=== PATIENT | male | born 1945 | race Caucasian/White ===

== ENCOUNTER 2018-10-29 19:18 | Observation (INO) ==
[2018-10-29 19:38] LABS: Mean Corpuscular HGB Conc 34.1 g/dL (31.6-35.5); Mean Corpuscular Hemoglobin 33.6 pg (28.0-33.3); Mean Corpuscular Volume 98.7 fL (83.0-100.0); Mean Platelet Volume 9.1 fL (9.4-12.4); Platelet Count 222 K/mcL (140-400); Red Blood Count 4.46 M/mcL (4.19-5.50); Red Cell Distribution Width 12.8 % (11.5-14.5); White Blood Count 9.7 K/mcL (4.3-11.1)
[2018-10-29] MEDS ORDERED: *HR* LORazepam 2 MG/ML VIAL ONE (19:42)
[2018-10-29 19:45] LABS: Prothrombin Time 11.4 Seconds (9.4-12.1)
[2018-10-29] MEDS ORDERED: Gadolinium Contrast Agent (WT Based) IV PRN (19:46)
[2018-10-29] MEDS ORDERED: levETIRAcetam 1,000 MG in 0.9 % Sodium Chloride 100 ML IVPB STA (19:47)
[2018-10-29] MEDS ORDERED: *HR* LORazepam 2 MG/ML VIAL IVP STA (19:47)
[2018-10-29 19:48] LABS: Activated Partial Thrombo Time 37.8 Seconds (26.0-36.0)
[2018-10-29 19:50] LABS: BUN/Creatinine Ratio 23 (6-26); Blood Urea Nitrogen 16 mg/dL (8-23); Calcium 9.3 mg/dL (8.6-10.3); Carbon Dioxide 28 mEq/L (23-29); Chloride 98 mEq/L (98-107); Glucose 178 mg/dL (70-105); Osmolality,Calculated 284 (280-300); Sodium 134 mEq/L (136-145); eGFR For African Americans > 60 (> 60); eGFR For Non-African Americans > 60 (> 60)
[2018-10-29 19:51] LABS: Troponin I < 0.03 ng/mL (< 0.04)
[2018-10-29 20:57] LABS: Magnesium 2.2 mg/dL (1.6-2.6)
[2018-10-29 21:12] LABS: Thyroid Stimulating Hormone 1.962 mcIU/mL (0.340-5.600)
[2018-10-29 21:23] LABS: VBG HCO3 23 mEq/L (21-27); VBG PCO2 36 mmHg (41-51); VBG PH 7.41 pH Units (7.32-7.42); VBG PO2 214 mmHg (25-50)
[2018-10-30 00:02] LABS: Bilirubin,Urine Negative (Negative); Blood,Urine Negative (Negative); Clarity,Urine Cloudy (Clear); Color,Urine Yellow (Yellow); Glucose,Urine (UA) Normal (Normal); Ketones,Urine Negative (Negative); Leukocyte Esterase,Urine Negative (Negative); Nitrite,Urine Negative (Negative); Protein,Urine 30 mg/dL (Neg-Trace); Specific Gravity,Urine 1.024 (1.010-1.025); Urobilinogen,Urine Normal (Normal)
[2018-10-30 00:03] LABS: Bacteria,Urine None Seen per hpf (None-Few); Hyaline Casts,Urine Few per lpf (None-Few); Squamous Epithelial Cell,Urine Many per lpf (None-Few); WBC,Urine 0-3 per hpf (0-3)
[2018-10-30 00:12] LABS: Amphetamine Screen,Urine Negative ng/mL (Cutoff=1000); Barbiturate Screen,Urine Negative ng/mL (Cutoff=200); Benzodiazepines Screen,Urine Negative ng/mL (Cutoff=200); Cannabinoid Screen,Urine Negative ng/mL (Cutoff = 50); Cocaine Screen,Urine Negative ng/mL (Cutoff= 300); Opiate Screen,Urine Negative ng/mL (Cutoff=300); Phencyclidine Screen,Urine Negative ng/mL (Cutoff=25)
[2018-10-30 00:13] LABS: Amorphous Sediment,Urine Many (Few)
[2018-10-30] MEDS ORDERED: Loratadine 10 MG TABLET PO PRN (02:01)
[2018-10-30] MEDS ORDERED: Ondansetron 4 MG/2 ML VIAL IVP PRN (02:06)
[2018-10-30] MEDS ORDERED: Naloxone 0.4 MG/ML INJ IVP PRN (02:06)
[2018-10-30] MEDS ORDERED: Acetaminophen 325 MG TABLET PO PRN (02:06)
[2018-10-30] MEDS ORDERED: 0.9 % Sodium Chloride 1,000 ML IVC SCH (02:15)
[2018-10-30 04:01] LABS: Adenovirus Not Detected (Not Detect); Bordetella Pertussis Not Detected (Not Detect); Chlamydophila pneumoniae Not Detected (Not Detect); Coronavirus 229E Not Detected (Not Detect); Coronavirus HKU1 Not Detected (Not Detect); Coronavirus NL63 Not Detected (Not Detect); Coronavirus OC43 Not Detected (Not Detect); Human Metapneumovirus Not Detected (Not Detect); Human Rhinovirus/Enterovirus Not Detected (Not Detect); Influenza A Subtype 2009 H1 Not Detected (Not Detect); Influenza B Not Detected (Not Detect); Mycoplasma pneumoniae Not Detected (Not Detect); Parainfluenza Virus 1 Not Detected (Not Detect); Parainfluenza Virus 2 Not Detected (Not Detect); Parainfluenza Virus 3 Not Detected (Not Detect); Parainfluenza Virus 4 Not Detected (Not Detect); Respiratory Syncytial Virus Not Detected (Not Detect)
[2018-10-30 06:19] LABS: Hematocrit 42.7 % (37.5-50.1); Hemoglobin 14.4 g/dL (12.9-16.9); Mean Corpuscular HGB Conc 33.7 g/dL (31.6-35.5); Mean Corpuscular Hemoglobin 34.4 pg (28.0-33.3); Mean Corpuscular Volume 101.9 fL (83.0-100.0); Mean Platelet Volume 9.8 fL (9.4-12.4); Platelet Count 164 K/mcL (140-400); Red Blood Count 4.19 M/mcL (4.19-5.50); Red Cell Distribution Width 12.8 % (11.5-14.5); White Blood Count 7.4 K/mcL (4.3-11.1)
[2018-10-30 07:09] LABS: BUN/Creatinine Ratio 31 (6-26); Blood Urea Nitrogen 17 mg/dL (8-23); Calcium 8.9 mg/dL (8.6-10.3); Carbon Dioxide 22 mEq/L (23-29); Chloride 101 mEq/L (98-107); Chol/HDL Ratio 2.9 (0-4.9); Cholesterol 159 mg/dL (< 200); Glucose 105 mg/dL (70-105); HDL Cholesterol 55 mg/dL (40-59); LDL Cholesterol,Calculated 89 mg/dL (0-99); Osmolality,Calculated 282 (280-300); Sodium 135 mEq/L (136-145); Triglycerides 75 mg/dL (< 150); eGFR For African Americans > 60 (> 60); eGFR For Non-African Americans > 60 (> 60)
[2018-10-30] MEDS: Lisinopril-HCTZ 20-12.5mg TABLET PO SCH (08:14)
[2018-10-31 03:31] LABS: Hematocrit 40.7 % (37.5-50.1); Hemoglobin 14.1 g/dL (12.9-16.9); Mean Corpuscular HGB Conc 34.6 g/dL (31.6-35.5); Mean Corpuscular Hemoglobin 33.4 pg (28.0-33.3); Mean Corpuscular Volume 96.4 fL (83.0-100.0); Mean Platelet Volume 9.5 fL (9.4-12.4); Platelet Count 182 K/mcL (140-400); Red Blood Count 4.22 M/mcL (4.19-5.50); Red Cell Distribution Width 12.4 % (11.5-14.5); White Blood Count 6.4 K/mcL (4.3-11.1)
[2018-10-31 03:32] LABS: BUN/Creatinine Ratio 22 (6-26); Blood Urea Nitrogen 12 mg/dL (8-23); Calcium 8.8 mg/dL (8.6-10.3); Carbon Dioxide 27 mEq/L (23-29); Chloride 101 mEq/L (98-107); Glucose 106 mg/dL (70-105); Osmolality,Calculated 280 (280-300); Potassium 3.6 mEq/L (3.5-5.1); Sodium 135 mEq/L (136-145); eGFR For African Americans > 60 (> 60); eGFR For Non-African Americans > 60 (> 60)
[2018-10-31 08:10] VITALS: BP 163/88
[2018-10-31] MEDS ORDERED: levETIRAcetam 250 MG TABLET PO SCH (09:00)
[2018-10-31] MEDS: Lisinopril-HCTZ 20-12.5mg TABLET PO SCH (09:10)
== END 2018-10-31 13:26 | disposition home or self-care (01) ==
LOC: EMEROOARM 19:18 → 2NNU 19:18 → 3BNU 10-30 16:24
PROVIDERS: ADMIT Internal Medicine Nephrology; ATTEND Internal Medicine Nephrology

== ENCOUNTER 2020-11-08 11:07 | Inpatient (IN) ==
[~2020-11-08 11:07] MED LIST: Acetaminophen IV 1,000 MG/100 ML BAG IVPB ONE
[2020-11-08] MEDS ORDERED: Ringers Solution, Lactated 1,000 ML IVC SCH (11:45)
[2020-11-08] MEDS ORDERED: *HR* HYDROmorphone PF 0.5 MG/0.5 ML SYRINGE IVP PRN (12:05)
[2020-11-08] MEDS ORDERED: Ondansetron 4 MG/2 ML VIAL IVP PRN ×2 (12:05→18:03)
[2020-11-08] MEDS ORDERED: *HR* Propofol 200 MG/20 ML VIAL IVP ONE (12:27)
[2020-11-08] MEDS ORDERED: *HR* FentaNYL (PF) 100 MCG/2 ML VIAL ONE ×2 (12:37→14:53)
[2020-11-08] MEDS ORDERED: Lidocaine -MPF 2% 2 ML VIAL ONE (12:38)
[2020-11-08] MEDS ORDERED: Ampicillin/Sulbactam 3,000 MG in 0.9 % Sodium Chloride Mini Bag 100 ML IVPB ONE (13:08)
[2020-11-08] MEDS ORDERED: *HR* Rocuronium Bromide 50 MG/5 ML VIAL ONE ×3 (13:35→14:22)
[2020-11-08] MEDS ORDERED: *HR* Phenylephrine 10 MG/ML VIAL ONE (14:26)
[2020-11-08] MEDS ORDERED: Sugammadex Sodium 200 MG/2 ML VIAL IV ONE (15:19)
[2020-11-08] MEDS ORDERED: Naloxone 0.4 MG/ML INJ IVP PRN (18:03)
[2020-11-08] MEDS ORDERED: 0.9 % Sodium Chloride Mini Bag 100 ML ONE (19:36)
[2020-11-08] MEDS: 0.9 % Sodium Chloride 1,000 ML IVC SCH (19:41)
[2020-11-08] MEDS: Ampicillin/Sulbactam 3,000 MG in 0.9 % Sodium Chloride Mini Bag 100 ML IVPB SCH (19:42)
[2020-11-08] MEDS: levETIRAcetam 250 MG TABLET PO SCH (19:56)
[2020-11-08] MEDS: Sennosides/Docusate Sodium TABLET PO SCH (19:56)
[2020-11-08] MEDS: Gabapentin 300 MG CAPSULE PO SCH (19:56)
[2020-11-08] MEDS: Famotidine 20 MG TABLET PO SCH (19:56)
[2020-11-08] MEDS: *HR* Heparin 5,000 UNIT/ML VIAL SQ SCH (21:09)
[2020-11-08] MEDS: *HR* HYDROcodone/Acet 5/325 mg TABLET PO PRN (21:10)
[2020-11-09] MEDS: Ampicillin/Sulbactam 3,000 MG in 0.9 % Sodium Chloride Mini Bag 100 ML IVPB SCH ×2 (00:33→06:50)
[2020-11-09] MEDS: 0.9 % Sodium Chloride 1,000 ML IVC SCH (03:27)
[2020-11-09 05:14] LABS: Hematocrit 30.9 % (37.5-50.1); Hemoglobin 10.5 g/dL (12.9-16.9); Mean Corpuscular Volume 94.2 fL (83.0-100.0); Platelet Count 471 K/mcL (140-400); Red Blood Count 3.28 M/mcL (4.19-5.50); Red Cell Distribution Width 13.2 % (11.5-14.5); White Blood Count 19.1 K/mcL (4.3-11.1)
[2020-11-09 05:33] LABS: BUN/Creatinine Ratio 22 (6-26); Blood Urea Nitrogen 10 mg/dL (8-23); Calcium 8.3 mg/dL (8.6-10.3); Carbon Dioxide 30 mEq/L (23-29); Chloride 94 mEq/L (98-107); Glucose 153 mg/dL (70-105); Magnesium 1.9 mg/dL (1.6-2.6); Osmolality,Calculated 272 (280-300); Potassium 4.3 mEq/L (3.5-5.1); Sodium 130 mEq/L (136-145); eGFR For African Americans > 60 (> 60); eGFR For Non-African Americans > 60 (> 60)
[2020-11-09] MEDS: *HR* Heparin 5,000 UNIT/ML VIAL SQ SCH ×3 (06:53→22:33)
[2020-11-09] MEDS: *HR* HYDROcodone/Acet 5/325 mg TABLET PO PRN ×3 (06:57→19:50)
[2020-11-09] MEDS: Famotidine 20 MG TABLET PO SCH ×2 (09:06→19:51)
[2020-11-09] MEDS: levETIRAcetam 250 MG TABLET PO SCH ×2 (09:06→19:50)
[2020-11-09] MEDS: Sennosides/Docusate Sodium TABLET PO SCH ×2 (09:06→19:50)
[2020-11-09] MEDS: Gabapentin 300 MG CAPSULE PO SCH ×3 (09:06→19:51)
[2020-11-09] MEDS ORDERED: 0.9 % Sodium Chloride 1,000 ML IVC SCH ×2 (10:45→10:56)
[2020-11-09] MEDS ORDERED: Ondansetron 4 MG/2 ML VIAL IVP PRN (10:56)
[2020-11-09] MEDS ORDERED: Naloxone 0.4 MG/ML INJ IVP PRN (10:56)
[2020-11-09] MEDS ORDERED: Ampicillin/Sulbactam 3,000 MG in 0.9 % Sodium Chloride Mini Bag 100 ML IVPB SCH (12:00)
[2020-11-09] MEDS: Piperacillin/Tazobactam 3.375 GM in 0.9 % Sodium Chloride Mini Bag 100 ML IVPB SCH ×2 (15:42→22:51)
[2020-11-09] MEDS: Vancomycin 1,500 MG/265 ML IV.SOLN IVPB SCH (15:58)
[2020-11-10] MEDS: Vancomycin 1,500 MG/265 ML IV.SOLN IVPB SCH (04:23)
[2020-11-10] MEDS: *HR* HYDROcodone/Acet 5/325 mg TABLET PO PRN ×3 (05:38→20:37)
[2020-11-10] MEDS: *HR* Heparin 5,000 UNIT/ML VIAL SQ SCH ×3 (05:38→22:48)
[2020-11-10 06:34] LABS: Hematocrit 29.6 % (37.5-50.1); Hemoglobin 9.7 g/dL (12.9-16.9); Mean Corpuscular HGB Conc 32.8 g/dL (31.6-35.5); Mean Corpuscular Hemoglobin 31.4 pg (28.0-33.3); Mean Corpuscular Volume 95.8 fL (83.0-100.0); Mean Platelet Volume 8.2 fL (9.4-12.4); Platelet Count 458 K/mcL (140-400); Red Blood Count 3.09 M/mcL (4.19-5.50); Red Cell Distribution Width 13.2 % (11.5-14.5); White Blood Count 14.9 K/mcL (4.3-11.1)
[2020-11-10] MEDS ORDERED: Furosemide 20 MG/2 ML VIAL IVP ONE (07:48)
[2020-11-10] MEDS: Piperacillin/Tazobactam 3.375 GM in 0.9 % Sodium Chloride Mini Bag 100 ML IVPB SCH (08:05)
[2020-11-10 08:06] LABS: BUN/Creatinine Ratio 24 (6-26); Blood Urea Nitrogen 12 mg/dL (8-23); Calcium 8.5 mg/dL (8.6-10.3); Carbon Dioxide 26 mEq/L (23-29); Chloride 95 mEq/L (98-107); Glucose 120 mg/dL (70-105); Osmolality,Calculated 265 (280-300); Potassium 4.3 mEq/L (3.5-5.1); Sodium 127 mEq/L (136-145); eGFR For African Americans > 60 (> 60); eGFR For Non-African Americans > 60 (> 60)
[2020-11-10] MEDS: levETIRAcetam 250 MG TABLET PO SCH ×2 (08:06→19:56)
[2020-11-10] MEDS: Famotidine 20 MG TABLET PO SCH ×2 (08:06→19:56)
[2020-11-10] MEDS: amLODIPine 5 MG TABLET PO SCH (08:06)
[2020-11-10] MEDS: Sennosides/Docusate Sodium TABLET PO SCH ×2 (08:06→19:56)
[2020-11-10] MEDS: Gabapentin 300 MG CAPSULE PO SCH ×3 (08:06→19:57)
[2020-11-10] MEDS ORDERED: amLODIPine 5 MG TABLET PO SCH (09:00)
[2020-11-10] MEDS: Ampicillin/Sulbactam 3,000 MG in 0.9 % Sodium Chloride Mini Bag 100 ML IVPB SCH ×2 (18:12→23:03)
[2020-11-11 03:46] LABS: Hematocrit 28.9 % (37.5-50.1); Hemoglobin 9.6 g/dL (12.9-16.9); Mean Corpuscular HGB Conc 33.2 g/dL (31.6-35.5); Mean Corpuscular Hemoglobin 31.3 pg (28.0-33.3); Mean Corpuscular Volume 94.1 fL (83.0-100.0); Mean Platelet Volume 8.3 fL (9.4-12.4); Platelet Count 417 K/mcL (140-400); Red Blood Count 3.07 M/mcL (4.19-5.50); Red Cell Distribution Width 13.1 % (11.5-14.5); White Blood Count 10.6 K/mcL (4.3-11.1)
[2020-11-11 04:08] LABS: BUN/Creatinine Ratio 20 (6-26); Blood Urea Nitrogen 8 mg/dL (8-23); Calcium 8.1 mg/dL (8.6-10.3); Carbon Dioxide 26 mEq/L (23-29); Chloride 92 mEq/L (98-107); Glucose 101 mg/dL (70-105); Magnesium 2.1 mg/dL (1.6-2.6); Osmolality,Calculated 258 (280-300); Sodium 125 mEq/L (136-145); eGFR For African Americans > 60 (> 60); eGFR For Non-African Americans > 60 (> 60)
[2020-11-11] MEDS: *HR* Heparin 5,000 UNIT/ML VIAL SQ SCH ×3 (05:28→20:31)
[2020-11-11] MEDS: Ampicillin/Sulbactam 3,000 MG in 0.9 % Sodium Chloride Mini Bag 100 ML IVPB SCH ×4 (05:28→23:36)
[2020-11-11] MEDS: amLODIPine 5 MG TABLET PO SCH (07:57)
[2020-11-11] MEDS: levETIRAcetam 250 MG TABLET PO SCH ×2 (07:57→20:30)
[2020-11-11] MEDS: Gabapentin 300 MG CAPSULE PO SCH ×3 (07:57→20:30)
[2020-11-11] MEDS: Sennosides/Docusate Sodium TABLET PO SCH ×2 (07:57→20:31)
[2020-11-11] MEDS: Famotidine 20 MG TABLET PO SCH ×2 (07:58→20:30)
[2020-11-11] MEDS: *HR* HYDROcodone/Acet 5/325 mg TABLET PO PRN ×3 (08:24→23:56)
[2020-11-11] MEDS ORDERED: Lidocaine -MPF 1% 5 ML AMPUL INFILT ONE (11:51)
[2020-11-12] MEDS: *HR* Heparin 5,000 UNIT/ML VIAL SQ SCH ×3 (05:56→19:42)
[2020-11-12] MEDS: Ampicillin/Sulbactam 3,000 MG in 0.9 % Sodium Chloride Mini Bag 100 ML IVPB SCH (05:56)
[2020-11-12 06:14] LABS: Hematocrit 26.1 % (37.5-50.1); Hemoglobin 8.9 g/dL (12.9-16.9); Mean Corpuscular HGB Conc 34.1 g/dL (31.6-35.5); Mean Corpuscular Hemoglobin 31.3 pg (28.0-33.3); Mean Corpuscular Volume 91.9 fL (83.0-100.0); Mean Platelet Volume 7.9 fL (9.4-12.4); Platelet Count 346 K/mcL (140-400); Red Blood Count 2.84 M/mcL (4.19-5.50); Red Cell Distribution Width 12.7 % (11.5-14.5); White Blood Count 8.3 K/mcL (4.3-11.1)
[2020-11-12 06:37] LABS: BUN/Creatinine Ratio 15 (6-26); Blood Urea Nitrogen 6 mg/dL (8-23); Calcium 7.9 mg/dL (8.6-10.3); Carbon Dioxide 30 mEq/L (23-29); Chloride 93 mEq/L (98-107); Glucose 100 mg/dL (70-105); Osmolality,Calculated 262 (280-300); Potassium 3.7 mEq/L (3.5-5.1); Sodium 127 mEq/L (136-145); eGFR For African Americans > 60 (> 60); eGFR For Non-African Americans > 60 (> 60)
[2020-11-12] MEDS: Sennosides/Docusate Sodium TABLET PO SCH ×2 (08:14→19:41)
[2020-11-12] MEDS: levETIRAcetam 250 MG TABLET PO SCH ×2 (08:15→19:41)
[2020-11-12] MEDS: Famotidine 20 MG TABLET PO SCH ×2 (08:15→19:41)
[2020-11-12] MEDS: amLODIPine 5 MG TABLET PO SCH (08:15)
[2020-11-12] MEDS: Gabapentin 300 MG CAPSULE PO SCH ×3 (08:15→19:42)
[2020-11-12] MEDS: cefTRIAXone 2,000 MG in Water for inj. (sterile) 10 ML IVP SCH (10:32)
[2020-11-12] MEDS: *HR* HYDROcodone/Acet 5/325 mg TABLET PO PRN ×2 (12:34→19:41)
[2020-11-13] MEDS: *HR* HYDROcodone/Acet 5/325 mg TABLET PO PRN ×3 (03:35→19:42)
[2020-11-13] MEDS: *HR* Heparin 5,000 UNIT/ML VIAL SQ SCH ×3 (06:39→21:04)
[2020-11-13] MEDS: Famotidine 20 MG TABLET PO SCH ×2 (08:33→19:53)
[2020-11-13] MEDS: Sennosides/Docusate Sodium TABLET PO SCH ×2 (08:33→19:53)
[2020-11-13] MEDS: levETIRAcetam 250 MG TABLET PO SCH ×2 (08:34→19:52)
[2020-11-13] MEDS: cefTRIAXone 2,000 MG in Water for inj. (sterile) 10 ML IVP SCH (08:34)
[2020-11-13] MEDS: Gabapentin 300 MG CAPSULE PO SCH ×3 (08:34→19:53)
[2020-11-13] MEDS: amLODIPine 5 MG TABLET PO SCH (08:34)
[2020-11-13] MEDS: Furosemide 20 MG TABLET PO SCH (08:48)
[2020-11-13 10:17] LABS: Mean Corpuscular HGB Conc 34.6 g/dL (31.6-35.5); Mean Corpuscular Hemoglobin 31.8 pg (28.0-33.3); Mean Corpuscular Volume 91.9 fL (83.0-100.0); Mean Platelet Volume 7.9 fL (9.4-12.4); Platelet Count 349 K/mcL (140-400); Red Blood Count 2.83 M/mcL (4.19-5.50); Red Cell Distribution Width 12.9 % (11.5-14.5); White Blood Count 9.4 K/mcL (4.3-11.1)
[2020-11-13 10:37] LABS: BUN/Creatinine Ratio 11 (6-26); Blood Urea Nitrogen 5 mg/dL (8-23); Carbon Dioxide 28 mEq/L (23-29); Chloride 91 mEq/L (98-107); Glucose 178 mg/dL (70-105); Magnesium 1.8 mg/dL (1.6-2.6); Osmolality,Calculated 262 (280-300); Potassium 3.7 mEq/L (3.5-5.1); Sodium 125 mEq/L (136-145); eGFR For African Americans > 60 (> 60); eGFR For Non-African Americans > 60 (> 60)
[2020-11-13 11:39] LABS: Calcium 7.7 mg/dL (8.6-10.3)
[2020-11-14 05:24] LABS: BUN/Creatinine Ratio 12 (6-26); Blood Urea Nitrogen 5 mg/dL (8-23); Carbon Dioxide 30 mEq/L (23-29); Chloride 93 mEq/L (98-107); Glucose 110 mg/dL (70-105); Magnesium 1.9 mg/dL (1.6-2.6); Osmolality,Calculated 262 (280-300); Potassium 3.7 mEq/L (3.5-5.1); Sodium 127 mEq/L (136-145); eGFR For African Americans > 60 (> 60); eGFR For Non-African Americans > 60 (> 60)
[2020-11-14] MEDS: *HR* Heparin 5,000 UNIT/ML VIAL SQ SCH ×2 (05:41→13:31)
[2020-11-14] MEDS: levETIRAcetam 250 MG TABLET PO SCH (08:29)
[2020-11-14] MEDS: amLODIPine 5 MG TABLET PO SCH (08:29)
[2020-11-14] MEDS: Famotidine 20 MG TABLET PO SCH (08:29)
[2020-11-14] MEDS: Furosemide 20 MG TABLET PO SCH (08:30)
[2020-11-14] MEDS: Sennosides/Docusate Sodium TABLET PO SCH (08:30)
[2020-11-14] MEDS: Gabapentin 300 MG CAPSULE PO SCH ×2 (08:30→15:14)
[2020-11-14] MEDS: cefTRIAXone 2,000 MG in Water for inj. (sterile) 10 ML IVP SCH (08:32)
[2020-11-14 08:47] VITALS: O2SAT 93
[2020-11-14] MEDS: *HR* HYDROcodone/Acet 5/325 mg TABLET PO PRN (11:01)
[2020-11-14 12:03] LABS: Hemoglobin 8.8 g/dL (12.9-16.9); Mean Corpuscular HGB Conc 33.8 g/dL (31.6-35.5); Mean Corpuscular Hemoglobin 31.8 pg (28.0-33.3); Mean Corpuscular Volume 93.9 fL (83.0-100.0); Mean Platelet Volume 8.7 fL (9.4-12.4); Platelet Count 363 K/mcL (140-400); Red Blood Count 2.77 M/mcL (4.19-5.50); Red Cell Distribution Width 13.2 % (11.5-14.5); White Blood Count 9.8 K/mcL (4.3-11.1)
[2020-11-14 12:07] VITALS: BP 127/69; PULSE 92
[2020-11-14 13:19] VITALS: TEMP 98.5
== END 2020-11-14 15:47 | disposition home health service (06) | DRG 164 ==
LOC: SAMDAY 11:07 → ICNU 18:12
PROVIDERS: ADMIT Thoracic Surgery (Cardiothoracic Vascular Surgery); ATTEND Thoracic Surgery (Cardiothoracic Vascular Surgery)